=== PATIENT | female | born 1995 | race Hispanic/Latino ===

== ENCOUNTER 2020-04-22 13:49 | Emergency (ER) | payer SELFPAY | END 2020-04-22 14:45 | disposition home or self-care (01) | LOC: ERS 13:49 | DX: H10.9 Unspecified conjunctivitis (principal) | CPT/HCPCS: 99282 ==

== ENCOUNTER 2020-06-23 18:32 | Day surgery (SDC) | payer OTHER ==
[2020-06-23 19:26] VITALS: BP 134/86; TEMP 98.5; BMI 29.9
[2020-06-23 20:38] LABS: Amnisure Test No Membranes Rupture (No Rupture)
[2020-06-23 20:39] LABS: Amnisure Internal Control QC ACCEPTABLE (ACCEPTABLE)
--- NOTE | 2020-06-23 21:18 | PDOC.FPROB ---
FMR OB H&P: HPI - History of Present Illness Chief Complaint: Contractions History of Present Illness: Patient is a 25 yp at 38.1 who presents for contractions. Of note, the patient has had 4 prior C/S. Patient says that the contractions started last night and progressed this afternoon. She reports that they are occurring q 2-3 minutes. She also endorses slight LOF that started this afternoon at 430 pm. it is clear and non odorous. She endorses good FM and no vaginal bleeding. She endorses urinary frequency but no dysuria. She denies complications this or concerns with u/s. Per nurses, patient is A1GDM. Primary Care Physician: RC FMR OB H&P: Current - Care : 5 Para: 4 Gestational age: 38.1 Due date: 07/06/20 Course/Complications: A1GDM, obesity - OB Labs Blood type: unknown RH: unknown Antibody Screen: unknown HIV: unknown RPR: unknown HepBsAg: unknown Quad screen: unknown Gonorrhea: unknown Chlamydia: unknown GBS: unknown FMR OB H&P: History - Past Medical History PMH: none - OB History OB History: 4 term C/S, patient is unsure why she had to have c/s, first 2 were done in [place] - Surgical History Sx History: 4 c/s - Family History Family History: noncontributory FMR OB H&P: Medications - Current Home Medications: Medication Instructions Recorded Confirmed Type Vitamin 1 tab PO DAILY #30 tab 12/20/16 06/23/20 Rx Allergies/Adverse Reactions: Allergies Allergy/AdvReac Type Severity Reaction Status Date / Time No Known Allergies Allergy Verified 06/23/20 19:11 FMR OB H&P: ROS - Review of Systems General: denies: fever/chills, weight/appetite/sleep changes Eyes: denies: eye pain, double vision ENT: denies: nasal congestion, rhinorrhea Respiratory: denies: cough, congestion, shortness of breath Gastrointestinal: denies: abdominal pain, indigestion Genitourinary (Female): reports: contractions. denies: incontinence, dysuria Musculoskeletal: denies: pain, stiffness Neurologic: denies: numbness, syncope Integumentary: denies: itching, rash FMR OB H&P: Vital Signs - Maternal Vital signs: Vital Signs - First Documented Temp Pulse Resp BP Pulse Ox 98.5 F 63 18 134/86 99 06/23/20 18:59 06/23/20 18:59 06/23/20 18:59 06/23/20 18:59 06/23/20 18:59 - Heart Tones Baseline: 135 Variability: moderate Acceleration: present Deceleration: absent Category: category 1 [place] contractions every: ~q 5 mins intermittent, irregular FMR OB H&P: Physical Exam - Physical Exam General: NAD, awake, alert and oriented HEENT: normocephalic and atraumatic, PERRLA Neck: supple, FROM Chest: non-tender to palpation, no lesions Heart: RRR, normal S1/S2, no murmurs/rubs/gallops General: CTAB, no respiratory distress, good air movement Abdomen: soft, gravid, non-tender, bowel sound present Musculoskeletal: pulses present, FROM in all four extremities Neurological: cranial nerves II through XII intact, no focal deficit - Pelvic Exam Vulva: normal hair distribution, appropriate taylor stage, no masses, no lesions , no discharge, no blood, normal rugae Cervix: no masses Deviation from normal: white discharge in vaginal vault SVE: closed/thick/high Membranes: intact Estimated Weight: 6 lbs FMR OB H&P: Results - Labs Lab results: Laboratory Results - last 24 hr 06/23/20 20:18 Amnio Swab Test No Membranes Rupture FMR OB H&P: A/P Disposition: d/c home if no change in SVE Discussion: Date/Time: 06/23/202117 Patient is a 25 yp at 38.1 who presents for contractions. Of note patient has 4 prior c/s. Labor r/o - Patient follows with [facility]-plans for 39 wk C/S per chart review - dated by 26 wk US c/w LMP - Amnisure negative - sterile spec exam negative - Continuous external monitoring - SVE recheck in 2 hours, if no change and stable external monitors, can d/c home This H&P was discussed with Dr. Sosa who agree with the above documentation and plan. Addendum - Attending - Attending Attestation Date/Time: 06/24/20 0023 I personally evaluated the patient and discussed the management with Dr. Gillespie. I agree with the History, Examination, Assessment and Plan documented above.
[2020-06-23] MEDS ORDERED: hydrALAZINE 20 MG/ML VIAL SLOW IVP PRN (21:20)
--- NOTE | 2020-06-23 23:09 | PDOC.LDPN ---
Labor & Delivery Progress Note - Subjective Subjective: comfortable, no concerns - Objective Abnormal vital signs: Patient had 2 BP 140s/90s, repeat was 136/77 General: NAD, resting SVE: closed, thick, high FHT: category 1 Plan: continue plan of care -: Patient is a 25 yp at 38.1 who presents for contractions. Of note patient has 4 prior c/s. Labor r/o - Patient follows with [facility]-plans for 39 wk C/S per chart review - dated by 26 wk US c/w LMP - Amnisure negative - sterile spec exam negative - given no cervical change and negative ROM workup, patient is not in active labor and can follow up with clinic and C?S as scheduled This plan was discussed with Dr. Sosa who agree with the above documentation and plan. Addendum - Attending - Attending Attestation Date/Time: 06/24/20 0023 I personally evaluated the patient and discussed the management with Dr. Gillespie. No evidence of SROM or labor at this time. Has dispo by [facility] for repeat C/s at 39 weeks, likely 2* to late dates. I agree with the History, Examination, Assessment and Plan documented above.
== END 2020-06-23 23:07 | disposition home or self-care (01) ==
LOC: L&D/OP 18:32 → EDSTATUS 18:49 → L&D/OP 23:07
PROVIDERS: ATTEND Obstetrics & Gynecology
DX: O47.1 False labor at or after 37 completed weeks of gestation (principal); O24.410 Gestational diabetes mellitus in pregnancy, diet controlled; O99.213 Obesity complicating pregnancy, third trimester; E66.9 Obesity, unspecified; O34.219 Maternal care for unspecified type scar from previous cesarean delivery; Z3A.38 38 weeks gestation of pregnancy
CPT/HCPCS: 84112; 99285

== ENCOUNTER 2021-03-17 16:05 | Emergency (ER) | payer MEDICAID, SELFPAY ==
[2021-03-18 01:49] LABS: SARS-CoV-2 PCR by NAA Not Detected (NotDetected)
== END 2021-03-17 16:50 | disposition home or self-care (01) ==
LOC: ERS 16:05
DX: R53.81 Other malaise (principal); R53.83 Other fatigue; R05 Cough; R19.7 Diarrhea, unspecified; R11.0 Nausea; Z20.822 Contact with and (suspected) exposure to COVID-19
CPT/HCPCS: 87635; 99283; U0003; U0005